=== PATIENT | female | born 1940 | race Hispanic/Latino ===

== ENCOUNTER → 2017-09-19 | Outpatient (CLI) | payer OTHER ==
[~2017-09-19] MED LIST: FOLI0.8T22 PO; GLIP1TAB6 PO; HYDR25TA PO; LOSA100T29 PO; PRENATA PO; SIMV40TA5 PO; SITA100T12 PO; VITA D3 PO; [UNRECOGNIZED DRUG - OTHER] PO
== END | disposition home or self-care (01) ==
LOC: OIH 08:45
PROVIDERS: ATTEND Family Medicine
DX: K59.00 Constipation, unspecified (principal)
CPT/HCPCS: 74018

== ENCOUNTER 2018-09-01 14:57 | Emergency (ER) | payer OTHER ==
[~2018-09-01 14:57] MED LIST changes: -LOSA100T29 PO; +LOSA100T58 PO
[2018-09-01 15:44] LABS: APPEARANCE,URINE Clear (CLEAR); BILIRUBIN,URINE Negative (NEGATIVE); COLOR,URINE Yellow (YELLOW); GLUCOSE, URINE (UA) 250 mg/dL (NEGATIVE); KETONES,URINE Negative (NEGATIVE); LEUKOCYTE ESTERASE ,URINE Negative (NEGATIVE); NITRATE,URINE Negative (NEGATIVE); OCCULT BLOOD,URINE Negative (NEGATIVE); PROTEIN,URINE Negative (NEGATIVE); UROBILINOGEN,URINE 0.2 mg/dL (0.2-1.0)
[2018-09-01 16:12] LABS: BASOPHILS % (AUTO) 0.7 % (0.0-5.0); EOSINOPHILS % (AUTO) 2.2 % (0.0-8.0); HEMATOCRIT 30.8 % (36-48); LYMPHOCYTES % (AUTO) 24.1 % (21.0-51.0); MEAN CORPUSCULAR HEMOGLOBIN 31.3 pg (27.0-33.0); MEAN CORPUSCULAR HGB CONC 34.4 g/dL (32.0-36.0); MONOCYTES % (AUTO) 10.3 % (3.0-13.0); NEUTROPHILS % (AUTO) 62.7 % (40.0-77.0); NUCLEATED RED BLOOD CELLS 0.1 % (0.0-0.19); PLATELET COUNT (AUTO) 247 K/uL (130-400); RED BLOOD CELL COUNT(AUTO) 3.38 MIL/uL (4.00-5.50); RED CELL DISTRIBUTION WIDTH 13.9 % (11.0-15.5); WHITE BLOOD COUNT (AUTO) 10.4 K/uL (4.8-10.8)
[2018-09-01 16:22] LABS: CREATININE 1.2 mg/dL (0.5-1.5); POTASSIUM 4.1 mmol/L (3.5-5.1)
[2018-09-01 16:26] LABS: ALBUMIN 3.4 g/dL (3.5-5.0); BILIRUBIN,TOTAL 0.5 mg/dL (0.2-1.0); TOTAL PROTEIN, SERUM 7.1 g/dL (6.0-8.3)
== END 2018-09-01 18:28 | disposition home or self-care (01) ==
LOC: EDH 14:57
DX: S00.03XA Contusion of scalp, initial encounter (principal); Z88.8 Allergy status to other drugs, medicaments and biological substances; W18.39XA Other fall on same level, initial encounter; Y93.89 Activity, other specified; Y92.89 Other specified places as the place of occurrence of the external cause; Y99.8 Other external cause status
CPT/HCPCS: 36415; 70450; 72125; 73030; 80053; 81003; 84484; 85025; 93005

== ENCOUNTER 2019-03-11 21:42 | Observation (INO) | payer OTHER ==
[~2019-03-11] VITALS: Ht 160 cm; Wt 63.5 kg
[~2019-03-11 21:42] MED LIST changes: +SIMV-46 PO; -SIMV40TA5 PO
[2019-03-11] MEDS ORDERED: ONDANSETRON HCL 4 MG/2 ML VIAL ONE (22:05)
[2019-03-11] MEDS ORDERED: FENTANYL CITRATE PF 50 MCG/1 ML 2ML VIAL ONE (22:05)
[2019-03-11 22:25] LABS: INR 0.97 (0.85-1.15); PARTIAL THROMBOPLASTIN TIME 25.4 SEC (26.3-35.5); PROTHROMBIN TIME 10.2 SEC (9.6-11.6)
[2019-03-11 23:49] LABS: APPEARANCE,URINE Clear (CLEAR); BILIRUBIN,URINE Negative (NEGATIVE); COLOR,URINE Yellow (YELLOW); GLUCOSE, URINE (UA) 250 mg/dL (NEGATIVE); KETONES,URINE Negative (NEGATIVE); LEUKOCYTE ESTERASE ,URINE Small (NEGATIVE); NITRATE,URINE Negative (NEGATIVE); OCCULT BLOOD,URINE Negative (NEGATIVE); PH,URINE 6.5 (5.0-8.0); PROTEIN,URINE Negative (NEGATIVE); UROBILINOGEN,URINE 0.2 mg/dL (0.2-1.0)
[2019-03-11 23:51] LABS: BASOPHILS % (AUTO) 0.5 % (0.0-5.0); EOSINOPHILS % (AUTO) 1.8 % (0.0-8.0); HEMATOCRIT 30.5 % (36-48); MEAN CORPUSCULAR HEMOGLOBIN 30.2 pg (27.0-33.0); MEAN CORPUSCULAR HGB CONC 34.1 g/dL (32.0-36.0); MEAN CORPUSCULAR VOLUME 88.7 fL (79-99); MONOCYTES % (AUTO) 8.5 % (3.0-13.0); NEUTROPHILS % (AUTO) 71.3 % (40.0-77.0); PLATELET COUNT (AUTO) 323 K/uL (130-400); RED BLOOD CELL COUNT(AUTO) 3.44 MIL/uL (4.00-5.50); RED CELL DISTRIBUTION WIDTH 13.5 % (11.0-15.5); WHITE BLOOD COUNT (AUTO) 15.4 K/uL (4.8-10.8)
[2019-03-11 23:59] LABS: CREATININE 1.2 mg/dL (0.5-1.5); POTASSIUM 4.4 mmol/L (3.5-5.1)
[2019-03-12 00:04] LABS: ALBUMIN 3.7 g/dL (3.5-5.0); BILIRUBIN,TOTAL 0.4 mg/dL (0.2-1.0); TOTAL PROTEIN, SERUM 7.8 g/dL (6.0-8.3)
[2019-03-12 00:13] LABS: BACTERIA,URINE Few /HPF (None Seen); RBC,URINE None Seen /HPF (0-1); SQUAMOUS EPITHELIAL CELL,UR Moderate /HPF (0-2)
[2019-03-12 02:00] VITALS: BP 162/75
--- NOTE | 2019-03-12 02:00 | NUR ---
admission note admit to room 431 via stretcher from er. patient awake, alert, ox3, no sob, no c/o pain at this time, left arm with sling intact, place pillow under left elbow, right hand 18 gauge catheter saline lock, patients at bedside, teach plan of care and expected outcome, both verbalize understanding via teach back
[2019-03-12] MEDS ORDERED: MORPHINE SULFATE 2 MG/ML 1ML SYG IVP PRN (03:30)
[2019-03-12] MEDS ORDERED: ONDANSETRON HCL 4 MG/2 ML VIAL IVP PRN (03:30)
[2019-03-12] MEDS ORDERED: SODIUM CHLORIDE 0.9% 10 ML VIAL IVP PRN (03:30)
[2019-03-12 04:24] VITALS: BP 155/72
[2019-03-12 05:32] LABS: BASOPHILS % (AUTO) 0.3 % (0.0-5.0); EOSINOPHILS % (AUTO) 0.8 % (0.0-8.0); HEMATOCRIT 26.5 % (36-48); LYMPHOCYTES % (AUTO) 19.3 % (21.0-51.0); MEAN CORPUSCULAR HEMOGLOBIN 29.7 pg (27.0-33.0); MEAN CORPUSCULAR HGB CONC 34.3 g/dL (32.0-36.0); MEAN CORPUSCULAR VOLUME 86.6 fL (79-99); MONOCYTES % (AUTO) 9.2 % (3.0-13.0); NEUTROPHILS % (AUTO) 69.7 % (40.0-77.0); PLATELET COUNT (AUTO) 282 K/uL (130-400); RED BLOOD CELL COUNT(AUTO) 3.06 MIL/uL (4.00-5.50); RED CELL DISTRIBUTION WIDTH 12.9 % (11.0-15.5); WHITE BLOOD COUNT (AUTO) 11.9 K/uL (4.8-10.8)
[2019-03-12 06:04] LABS: CREATININE 1.1 mg/dL (0.5-1.5); POTASSIUM 4.3 mmol/L (3.5-5.1)
[2019-03-12 08:51] VITALS: BP 167/78
--- NOTE | 2019-03-12 09:25 | NUR ---
DR. SILVERMAN SPOKE TO MD VIA TELEPHONE REGARDING CONSULT. MD REPLIED HE WOULD BE IN TO SEE PATIENT TODAY. I TOLD MD THAT PATIENT HAD BREAKFAST TODAY AND MD REPLIED OKAY, DO NOT HAVE TO MAKE HER NPO AT THIS TIME.
[2019-03-12] MEDS: PANTOPRAZOLE SODIUM 40 MG TABLET.DR PO SCH (10:41)
[2019-03-12 11:54] VITALS: BP 151/67
--- NOTE | 2019-03-12 13:40 | NUR ---
RD NOTIFICATION DIET: 75GMCCD. PO INTAKE 75% AND CLAIMS TO HAVE GOOD APPETITE. NO COMPLAINTS OF N/V/C/D AT THIS TIME. NO DIFFICULTIES CHEWING OR SWALLOWING FOOD/ LIQUIDS AT THIS TIME. FAMILY MENTIONED PT WILL NOT BE HAVING SURGERY AFTER ALL. HUMERUS LT FRACTURE NOTED. SKIN INTACT, NO EDEMA NOTED. LABS REVIEWED. MEDS REVIEWED. RD RECOMMENDS TO CONTINUE CURRENT DIET ADD ORAL SUPPLEMENTATION TO DIET ORDER Addendum: 03/12/19 at [address] Amended: Links added.
--- NOTE | 2019-03-12 15:42 | NUR ---
INITIAL MET W PATIENT AND FAMILY AT BEDSIDE. PT AAOX3 BUT VERY [place] PT LIVES WITH ADULT HANDICAPPED DAUGHTER- DAUGHTER HAS PROVIDERS TO HELP CARE FOR HER- OTHER FAMILY IN AREA- PT HAD A WALKER AND A CANE, REQUIRES [employer] ASSISTANCE STAIRS OUTSIDE HER HOUSE, WITHOUT A HANDRAIL, FELL AND BROKE WRIST, DAUGHTER STATES THE FAMILY WITH' LOOK IN AFTER THEM AND ROTATE AT NIGHT TO STAY WITH PT AND DAUGHTER Addendum: 03/12/19 at 1548 by SPRING CORLEY RN Amended: Links added.
[2019-03-12 16:00] VITALS: BP 158/74
[2019-03-12] MEDS ORDERED: SIMV40TA59 PO (16:10)
[2019-03-12] MEDS ORDERED: SITA100T12 PO (16:10)
[2019-03-12] MEDS ORDERED: SERT25TA5 PO (16:10)
[2019-03-12] MEDS ORDERED: METO-408 PO (16:10)
[2019-03-12] MEDS ORDERED: BENZ-51 PO (16:10)
[2019-03-12] MEDS ORDERED: GLUCAGON 1MG KIT 1 MG ML IM PRN (18:30)
[2019-03-12] MEDS ORDERED: DEXTROSE 50%-WATER 50 ML DISP.SYRIN IV PRN (18:30)
[2019-03-12] MEDS ORDERED: ACETAMINOPHEN-CODEINE 300/30MG TAB PO PRN (19:30)
[2019-03-12] MEDS ORDERED: TRAMADOL HCL 50 MG TABLET PO PRN (19:30)
[2019-03-12] MEDS ORDERED: TRAMADOL HCL 50 MG TABLET ONE (19:42)
[2019-03-12 19:53] VITALS: BP 152/65
[2019-03-12] MEDS ORDERED: SIMVASTATIN 20 MG TABLET PO SCH (21:00)
[2019-03-12] MEDS: METOPROLOL TARTRATE 25 MG TAB PO SCH (21:07)
[2019-03-12] MEDS: BENZONATATE 100 MG CAPSULE PO SCH (21:07)
[2019-03-12] MEDS: INSULIN HUMULIN R 100 UNIT/ML 3ML SQ SCH (21:13)
[2019-03-13] VITALS: BP 155/73
[2019-03-13 04:00] VITALS: BP 150/73
[2019-03-13] MEDS: INSULIN HUMULIN R 100 UNIT/ML 3ML SQ SCH ×3 (06:33→16:20)
[2019-03-13 08:17] VITALS: BP 131/65
[2019-03-13] MEDS: PANTOPRAZOLE SODIUM 40 MG TABLET.DR PO SCH (08:42)
[2019-03-13] MEDS: BENZONATATE 100 MG CAPSULE PO SCH ×2 (08:43→15:48)
[2019-03-13] MEDS ORDERED: LINAGLIPTIN 5 MG TABLET PO SCH (09:00)
[2019-03-13] MEDS ORDERED: SERTRALINE HCL 50 MG TABLET PO SCH (09:00)
[2019-03-13] MEDS: METOPROLOL TARTRATE 25 MG TAB PO SCH (09:36)
[2019-03-13 11:29] VITALS: BP 129/64
[2019-03-13 16:00] VITALS: BP 127/60
[2019-03-13 19:30] VITALS: BP 149/74
--- NOTE | 2019-03-13 19:30 | NUR ---
DISCHARGE DISCHARGE TEACHING PROVIDED TO PATIENT AND FAMILY AT BEDSIDE REGARDING RX (TYLENOL #3, TRAMADOL, SURFAK). INFORMED PATIENT AND FAMILY THAT FOLLOW-UP APPOINTMENT WITH DR. SILVERMAN IN 2-3 WEEKS AND FOLLOW-UP APPOINTMENT WITH PRIMARY MD DR. KAUR IN 2-3 DAYS ARE PENDING TO BE SCHEDULED. PROVIDED DR. SILVERMAN OFFICE NUMBER AND LOCATION IN DISCHARGE PAPERWORK. INFORMED PATIENT SHE WAS TO WEAR LEFT ARM SLING AT ALL TIMES AND NO WEIGHT BEARING TO LEFT ARM. ENCOURAGED TO CONTINUE PHYSICAL THERAPY TEACHING PROVIDED IN HOSPITAL AT HOME. REMOVED 18G IV FROM RIGHT HAND, CATHETER TIP INTACT. PATIENT REPORTS NO PAIN OR DISCOMFORTS, PATIENT TO BE DRIVEN HOME BY HER FAMILY. PATIENT DISCHARGED WITH LEFT ARM SLING IN PLACE.
== END 2019-03-13 19:45 | disposition home or self-care (01) ==
LOC: EDH 21:42 → EDHIP 03-12 00:35 → 4AH 03-12 01:55
PROVIDERS: ADMIT Family Medicine; ATTEND Family Medicine
DX: S42.292A Other displaced fracture of upper end of left humerus, initial encounter for closed fracture (principal); I10 Essential (primary) hypertension; E11.9 Type 2 diabetes mellitus without complications; E78.00 Pure hypercholesterolemia, unspecified; Z90.12 Acquired absence of left breast and nipple; Z85.3 Personal history of malignant neoplasm of breast; W10.8XXA Fall (on) (from) other stairs and steps, initial encounter; Y93.89 Activity, other specified; Y92.89 Other specified places as the place of occurrence of the external cause; Y99.8 Other external cause status
CPT/HCPCS: 36415 ×2; 70450; 71250; 72125; 73030; 73070; 80048; 80053; 81001; 82948 ×8; 85025 ×2; 85610; 85730; 96372 ×2; 96374; 97039 ×2; 97116 ×2; 97161; 99284; G0378 ×42; G8978; G8979; G8980; G8981; G8982; G8983; J1815 ×2; J2405; J3010

== ENCOUNTER → 2019-11-12 | Outpatient (CLI) | payer OTHER ==
[~2019-11-12] MED LIST changes: +CHOL100018 PO; -FOLI0.8T22 PO; +FOLI1TAB85 PO; +GLIP; -GLIP1TAB6 PO; -HYDR25TA PO; +LORA10TA7 PO; +METFORMIN; +MORINGA; -PRENATA PO; +SERT25TA5 PO; -SIMV-46 PO; -VITA D3 PO; +VITAMIN E; -[UNRECOGNIZED DRUG - OTHER] PO
== END | disposition home or self-care (01) ==
LOC: RAH 11:25
PROVIDERS: ATTEND Family Medicine
DX: M47.816 Spondylosis without myelopathy or radiculopathy, lumbar region (principal); M48.061 Spinal stenosis, lumbar region without neurogenic claudication; M81.0 Age-related osteoporosis without current pathological fracture; M25.551 Pain in right hip; Z96.641 Presence of right artificial hip joint
CPT/HCPCS: 72100; 73502

== ENCOUNTER → 2020-03-27 | Outpatient (CLI) | payer OTHER | END | disposition home or self-care (01) | LOC: OIH 10:46 | PROVIDERS: ATTEND Family Medicine | DX: I35.8 Other nonrheumatic aortic valve disorders (principal); R07.9 Chest pain, unspecified | CPT/HCPCS: 71046 ==

== ENCOUNTER 2022-06-25 09:39 | Emergency (ER) | payer OTHER, MEDICARE ==
[~2022-06-25] VITALS: Ht 154.9 cm; Wt 61.2 kg
[~2022-06-25 09:39] MED LIST changes: +CHOL-34 PO; -CHOL100018 PO; +SERT-438 PO; -SERT25TA5 PO
[2022-06-25] MEDS ORDERED: ASPIRIN 325MG EC TAB PO ONE (10:00)
[2022-06-25] MEDS ORDERED: 0.9%NACL 1000ML 1,000 ML IV ONE (10:00)
[2022-06-25] MEDS ORDERED: LORAZEPAM 0.5 MG TABLET PO ONE (10:00)
[2022-06-25 10:29] LABS: HEMATOCRIT 30.7 % (36-48); MEAN CORPUSCULAR HEMOGLOBIN 27.5 pg (27.0-33.0); MEAN CORPUSCULAR HGB CONC 32.6 g/dL (32.0-36.0); MEAN CORPUSCULAR VOLUME 84.3 fL (79-99); RED BLOOD CELL COUNT(AUTO) 3.64 MIL/uL (4.00-5.50); RED CELL DISTRIBUTION WIDTH 14.4 % (11.0-15.5); WHITE BLOOD COUNT (AUTO) 8.6 K/uL (4.8-10.8)
[2022-06-25 10:44] LABS: CREATININE 1.3 mg/dL (0.5-1.5)
[2022-06-25 10:48] LABS: ALBUMIN 3.7 g/dL (3.5-5.0); TOTAL PROTEIN, SERUM 7.8 g/dL (6.0-8.3)
[2022-06-25 11:09] LABS: APPEARANCE,URINE CLEAR (CLEAR); BILIRUBIN,URINE NEGATIVE (NEGATIVE); COLOR,URINE COLORLESS (YELLOW); GLUCOSE, URINE (UA) NEGATIVE (NEGATIVE); KETONES,URINE NEGATIVE (NEGATIVE); LEUKOCYTE ESTERASE ,URINE 75 Leu/uL (NEGATIVE); NITRATE,URINE NEGATIVE (NEGATIVE); OCCULT BLOOD,URINE NEGATIVE (NEGATIVE); PH,URINE 7.5 (5.0-8.0); PROTEIN,URINE NEGATIVE (NEGATIVE); UROBILINOGEN,URINE 0.2 mg/dL (0.2-1.0)
[2022-06-25 11:37] VITALS: BP 160/54
[2022-06-25 11:48] LABS: BACTERIA,URINE FEW /HPF (None Seen); RBC,URINE 0-1 /HPF (0-1); SQUAMOUS EPITHELIAL CELL,UR FEW /HPF (0-2)
[2022-06-25] MEDS ORDERED: CEPH500B PO (12:18)
== END 2022-06-25 12:45 | disposition home or self-care (01) ==
LOC: EDH 09:39
DX: R06.02 Shortness of breath (principal); R07.89 Other chest pain; N39.0 Urinary tract infection, site not specified; E11.65 Type 2 diabetes mellitus with hyperglycemia; E78.00 Pure hypercholesterolemia, unspecified; I10 Essential (primary) hypertension; Z79.84 Long term (current) use of oral hypoglycemic drugs; Z79.899 Other long term (current) drug therapy; Z90.49 Acquired absence of other specified parts of digestive tract; Z20.822 Contact with and (suspected) exposure to COVID-19
CPT/HCPCS: 99285; 84484 ×2; 80053; 85027; 87088; 87804 ×2; 82010; 81001; 36415; 87635; 71045; 96360; 96361; 93005; C9803; J7030

== ENCOUNTER 2022-07-31 09:34 | Observation (INO) | payer OTHER, MEDICARE ==
[~2022-07-31] VITALS: Ht 157.5 cm; Wt 66.5 kg
[~2022-07-31 09:34] MED LIST changes: +CEPH500B PO; -LOSA100T58 PO; +LOSA100T59 PO
[2022-07-31] MEDS ORDERED: FAMOTIDINE 20MG VIAL IV ONE (10:00)
[2022-07-31] MEDS ORDERED: 0.9%NACL 1000ML 1,000 ML IV ONE (10:00)
[2022-07-31] MEDS ORDERED: ONDANSETRON 4MG INJ IVP ONE (10:00)
[2022-07-31 10:16] LABS: BASOPHILS % (AUTO) 0.4 % (0.0-5.0); EOSINOPHILS % (AUTO) 1.5 % (0.0-8.0); HEMATOCRIT 29.7 % (36-48); LYMPHOCYTES % (AUTO) 18.1 % (21.0-51.0); MEAN CORPUSCULAR HEMOGLOBIN 27.9 pg (27.0-33.0); MONOCYTES % (AUTO) 10.1 % (3.0-13.0); NEUTROPHILS % (AUTO) 69.2 % (40.0-77.0); PLATELET COUNT (AUTO) 281 K/uL (130-400); RED BLOOD CELL COUNT(AUTO) 3.62 MIL/uL (4.00-5.50); RED CELL DISTRIBUTION WIDTH 13.3 % (11.0-15.5); WHITE BLOOD COUNT (AUTO) 12.2 K/uL (4.8-10.8)
[2022-07-31 10:27] LABS: ALBUMIN 3.6 g/dL (3.5-5.0); CREATININE 1.2 mg/dL (0.5-1.5); POTASSIUM 3.7 mmol/L (3.5-5.1)
[2022-07-31 10:31] LABS: TOTAL PROTEIN, SERUM 7.8 g/dL (6.0-8.3)
[2022-07-31 11:08] LABS: APPEARANCE,URINE CLEAR (CLEAR); BILIRUBIN,URINE NEGATIVE (NEGATIVE); COLOR,URINE LIGHT-YELLOW (YELLOW); GLUCOSE, URINE (UA) 300 mg/dL (NEGATIVE); KETONES,URINE NEGATIVE (NEGATIVE); LEUKOCYTE ESTERASE ,URINE NEGATIVE Leu/uL (NEGATIVE); NITRATE,URINE NEGATIVE (NEGATIVE); OCCULT BLOOD,URINE NEGATIVE (NEGATIVE); PH,URINE 7.5 (5.0-8.0); PROTEIN,URINE 10 mg/dL (NEGATIVE); UROBILINOGEN,URINE 0.2 mg/dL (0.2-1.0)
[2022-07-31 11:16] LABS: RBC,URINE 0-1 /HPF (0-1); SQUAMOUS EPITHELIAL CELL,UR MOD /HPF (0-2); TRANSITIONAL EPI CELLS,URINE RARE /HPF (None Seen); WBC,URINE 0-1 /HPF (0-1)
[2022-07-31] MEDS ORDERED: IOHEXOL 350 MG/ML 100ML INFUS..BTL IV ONE (11:58)
[2022-07-31] MEDS ORDERED: POTASSIUM CHLORIDE 20MEQ/100ML 100 ML IV PRN ×2 (13:30)
[2022-07-31] MEDS ORDERED: KCL 20 MEQ ERTAB PO PRN (13:30)
[2022-07-31] MEDS ORDERED: HYDROMORPHONE 1 MG INJ IV PRN (13:30)
[2022-07-31] MEDS ORDERED: POTASSIUM CHLORIDE 10% ELIXIR 20 MEQ/15 ML UDCUP PO PRN (13:30)
[2022-07-31] MEDS ORDERED: HYDROCODONE/ACETAMINOPHEN 5/325 MG TAB PO PRN ×2 (13:30)
[2022-07-31] MEDS ORDERED: DEXTROSE 50%-WATER 50 ML DISP.SYRIN IV PRN (13:30)
[2022-07-31] MEDS ORDERED: ACETAMINOPHEN 325 MG TAB PO PRN (13:30)
[2022-07-31] MEDS ORDERED: GLUCAGON 1MG KIT 1 MG ML IM PRN (13:30)
[2022-07-31] MEDS ORDERED: HYDRALAZINE 20MG/ML VIAL IV PRN (13:30)
[2022-07-31] MEDS ORDERED: ALBUTEROL 0.083% 2.5 MG/3 ML INH IH PRN (13:30)
[2022-07-31] MEDS ORDERED: DIPHENHYDRAMINE HCL 25 MG CAPSULE PO PRN (13:30)
[2022-07-31] MEDS: 0.9%NACL 1000ML 1,000 ML IV SCH (13:54)
[2022-07-31] MEDS ORDERED: TIZA2CAP9 PO (14:19)
[2022-07-31] MEDS ORDERED: PANT40TA54 PO (14:19)
[2022-07-31] MEDS ORDERED: SIMV40TA59 PO (14:19)
[2022-07-31] MEDS ORDERED: AMLO-257 PO (14:19)
[2022-07-31] MEDS ORDERED: DOCU100C33 PO (14:19)
[2022-07-31] MEDS ORDERED: LEVO25CA4 PO (14:19)
[2022-07-31] MEDS ORDERED: AMOX1TAB16 PO (14:19)
[2022-07-31] MEDS ORDERED: SIME125T3 PO (14:19)
[2022-07-31] MEDS ORDERED: MEMA5TAB42 PO (14:19)
[2022-07-31] MEDS: INSULIN HUMULIN R 100 UNIT/ML 3ML SQ SCH ×2 (16:30→21:00)
[2022-07-31] MEDS ORDERED: CEFTRIAXONE 2GM VIAL IVPB SCH (17:00)
[2022-07-31 19:41] LABS: CREATININE 1.1 mg/dL (0.5-1.5)
[2022-07-31] MEDS ORDERED: FAMOTIDINE 20MG VIAL IV SCH (21:00)
[2022-07-31] MEDS ORDERED: AMLODIPINE 5 MG TAB PO SCH (21:00)
[2022-07-31] MEDS ORDERED: SIMVASTATIN 20 MG TABLET PO SCH (21:00)
[2022-07-31] MEDS ORDERED: HALOPERIDOL INJ 5 MG/ML VIAL ONE (22:42)
[2022-07-31] MEDS: MEMANTINE HCL 5 MG TABLET PO SCH (22:46)
[2022-07-31] MEDS: METOCLOPRAMIDE 10 MG/2 ML VIAL IVP SCH (22:47)
[2022-07-31] MEDS ORDERED: HALOPERIDOL INJ 5 MG/ML VIAL IM SCH (23:00)
[2022-08-01] MEDS: 0.9%NACL 1000ML 1,000 ML IV SCH ×2 (00:39→09:30)
[2022-08-01] MEDS ORDERED: HALOPERIDOL INJ 5 MG/ML VIAL IM SCH ×2 (01:00)
[2022-08-01 01:33] VITALS: BP 155/74
[2022-08-01 03:03] VITALS: BP 158/89
[2022-08-01 05:34] LABS: BASOPHILS % (AUTO) 0.5 % (0.0-5.0); EOSINOPHILS % (AUTO) 0.5 % (0.0-8.0); HEMATOCRIT 26.9 % (36-48); LYMPHOCYTES % (AUTO) 15.3 % (21.0-51.0); MEAN CORPUSCULAR HEMOGLOBIN 27.8 pg (27.0-33.0); MEAN CORPUSCULAR HGB CONC 32.7 g/dL (32.0-36.0); MEAN CORPUSCULAR VOLUME 85.1 fL (79-99); NEUTROPHILS % (AUTO) 75.1 % (40.0-77.0); PLATELET COUNT (AUTO) 192 K/uL (130-400); RED BLOOD CELL COUNT(AUTO) 3.16 MIL/uL (4.00-5.50); RED CELL DISTRIBUTION WIDTH 13.9 % (11.0-15.5); WHITE BLOOD COUNT (AUTO) 12.9 K/uL (4.8-10.8)
[2022-08-01 05:50] LABS: B-TYPE NATRIURETIC PEPTIDE 50 pg/mL (0-100)
[2022-08-01 05:59] LABS: CREATININE 1.1 mg/dL (0.5-1.5); MAGNESIUM 1.8 mg/dL (1.80-2.40); POTASSIUM 3.8 mmol/L (3.5-5.1); THYROID STIMULATING HORMONE 2.98 uIU/mL (0.36-3.74)
[2022-08-01] MEDS ORDERED: LEVOTHYROXINE 25 MCG TABLET PO SCH (06:30)
[2022-08-01] MEDS: INSULIN HUMULIN R 100 UNIT/ML 3ML SQ SCH (06:48)
[2022-08-01 08:00] VITALS: BP 116/68
[2022-08-01] MEDS ORDERED: DOCUSATE SODIUM 100 MG CAP PO SCH (09:00)
[2022-08-01] MEDS ORDERED: ENOXAPARIN SODIUM 30 MG/0.3 ML SQ SCH (09:00)
[2022-08-01] MEDS: METOCLOPRAMIDE 10 MG/2 ML VIAL IVP SCH (09:00)
[2022-08-01] MEDS: MEMANTINE HCL 5 MG TABLET PO SCH (09:00)
== END 2022-08-01 09:45 | disposition home or self-care (01) ==
LOC: EDH 09:34 → EDHIP 13:15 → 3CH 22:05 → EDHIP 22:17 → 3DH 08-01 00:46
PROVIDERS: ADMIT Internal Medicine Critical Care Medicine; ATTEND Internal Medicine Critical Care Medicine
DX: K59.00 Constipation, unspecified (principal); Z20.822 Contact with and (suspected) exposure to COVID-19; E86.0 Dehydration; E87.1 Hypo-osmolality and hyponatremia; E87.8 Other disorders of electrolyte and fluid balance, not elsewhere classified; D72.829 Elevated white blood cell count, unspecified; M43.9 Deforming dorsopathy, unspecified; I10 Essential (primary) hypertension; E11.65 Type 2 diabetes mellitus with hyperglycemia; E78.5 Hyperlipidemia, unspecified; F03.90 Unspecified dementia, unspecified severity, without behavioral disturbance, psychotic disturbance, mood disturbance, and anxiety; E03.9 Hypothyroidism, unspecified; E78.00 Pure hypercholesterolemia, unspecified; Z85.3 Personal history of malignant neoplasm of breast; Z90.12 Acquired absence of left breast and nipple; Z79.899 Other long term (current) drug therapy
CPT/HCPCS: 96376; 96372; 96361 ×2; 96365; 96375; 99285; 84484; 80053; 83690; 85025 ×2; 87880; 87804 ×2; 82948 ×2; 83605; 83935; 81001; 36415 ×2; 87635; 71045; 74177; 92610; 93005; 84443; 83735; 80048; 83880; 83930; 82533; G0378 ×21; C9803; J3490 ×2; J1170; J7030; J0696; J1630; J2405; Q9967; J1815

== ENCOUNTER 2023-01-31 11:48 | Observation (INO) | payer OTHER, MEDICARE ==
[~2023-01-31] VITALS: Ht 162.6 cm; Wt 68.9 kg
[~2023-01-31 11:48] MED LIST changes: +AMLO-257 PO; +AMOX1TAB16 PO; +DOCU100C33 PO; +LEVO25CA4 PO; +MEMA5TAB42 PO; +PANT40TA54 PO; +SIME125T3 PO; +SIMV40TA59 PO; +TIZA2CAP9 PO
[2023-01-31 13:19] LABS: BASOPHILS # (AUTO) 0.06 K/uL (0.00-0.20); BASOPHILS % (AUTO) 0.3 % (0.0-5.0); EOSINOPHILS # (AUTO) 0.17 K/uL (0.00-0.70); HEMATOCRIT 32.3 % (36-48); IMMATURE GRANULOCYTE ABSOLUTE 0.26 K/uL (0-1); LYMPHOCYTES % (AUTO) 11.6 % (21.0-51.0); MEAN CORPUSCULAR HEMOGLOBIN 28.6 pg (27.0-33.0); MEAN CORPUSCULAR HGB CONC 34.1 g/dL (32.0-36.0); MEAN CORPUSCULAR VOLUME 83.9 fL (79-99); MONOCYTES # (AUTO) 0.7 K/uL (0.1-1.0); MONOCYTES % (AUTO) 4.2 % (3.0-13.0); NEUTROPHILS % (AUTO) 81.4 % (40.0-77.0); PLATELET COUNT (AUTO) 320 K/uL (130-400); RED BLOOD CELL COUNT(AUTO) 3.85 MIL/uL (4.00-5.50); RED CELL DISTRIBUTION WIDTH 14.1 % (11.0-15.5); WHITE BLOOD COUNT (AUTO) 17.3 K/uL (4.8-10.8)
[2023-01-31 13:27] LABS: CREATININE 1.2 mg/dL (0.5-1.5); POTASSIUM 4.1 mmol/L (3.5-5.1)
[2023-01-31 13:34] LABS: ALBUMIN 3.8 g/dL (3.5-5.0); BILIRUBIN,TOTAL 0.6 mg/dL (0.2-1.0); TOTAL PROTEIN, SERUM 8.6 g/dL (6.0-8.3)
[2023-01-31] MEDS ORDERED: GUAIFENESIN-DM 200/20 MG 10 ML PO PRN (15:30)
[2023-01-31] MEDS ORDERED: MAG/ALUM/SIMETH 30 ML UDCUP PO PRN (15:30)
[2023-01-31] MEDS ORDERED: GLUCAGON 1MG KIT 1 MG ML IM PRN ×2 (15:30→20:30)
[2023-01-31] MEDS ORDERED: MAGNESIUM 2GM PREMIX 50ML 50 ML IV PRN (15:30)
[2023-01-31] MEDS ORDERED: LACTATED RINGERS 1000ML 1,000 ML IV ONE ×2 (15:30→16:30)
[2023-01-31] MEDS ORDERED: ACETAMINOPHEN 325 MG TAB PO PRN (15:30)
[2023-01-31] MEDS ORDERED: DiphenhydrAMINE HCL 50 MG/ML VIAL IV PRN (15:30)
[2023-01-31] MEDS ORDERED: ONDANSETRON 4MG INJ IV PRN (15:30)
[2023-01-31] MEDS ORDERED: DEXTROSE 50%-WATER 50 ML DISP.SYRIN IV PRN (15:30)
[2023-01-31] MEDS ORDERED: LACTULOSE 20 GM/30 ML UDCUP PO PRN (15:30)
[2023-01-31] MEDS ORDERED: POTASSIUM CHLORIDE 10% ELIXIR 20 MEQ/15 ML UDCUP PO PRN (15:30)
[2023-01-31] MEDS ORDERED: KCL 20 MEQ ERTAB PO PRN (15:30)
[2023-01-31] MEDS ORDERED: DOCUSATE SODIUM 100 MG CAP PO PRN (15:30)
[2023-01-31] MEDS ORDERED: DIPHENHYDRAMINE HCL 25 MG CAPSULE PO PRN (15:30)
[2023-01-31] MEDS ORDERED: NITROGLYCERIN 0.4 MG SL TAB SL PRN (15:30)
[2023-01-31] MEDS ORDERED: POTASSIUM CHLORIDE 20MEQ/100ML 100 ML IV PRN ×2 (15:30)
[2023-01-31] MEDS: INSULIN HUMULIN R 100 UNIT/ML 3ML SQ SCH ×3 (16:30→21:26)
[2023-01-31] MEDS ORDERED: ZOSYN 3.375GM +NS 50ML IV ONE (16:30)
[2023-01-31] MEDS ORDERED: SIMV-46 PO (17:06)
[2023-01-31] MEDS ORDERED: FOLI0.8T22 PO (17:06)
[2023-01-31] MEDS: 0.9%NACL 1000ML 1,000 ML IV SCH (17:10)
[2023-01-31] MEDS: ACETAMINOPHEN 325 MG TAB PO PRN ×2 (17:34→21:19)
[2023-01-31 18:14] LABS: ADD UA MICROSCOPIC YES; BILIRUBIN,URINE NEGATIVE (NEGATIVE); COLOR,URINE LIGHT-YELLOW (YELLOW); GLUCOSE, URINE (UA) NEGATIVE (NEGATIVE); KETONES,URINE 5 mg/dL (NEGATIVE); LEUKOCYTE ESTERASE ,URINE SMALL Leu/uL (NEGATIVE); NITRATE,URINE NEGATIVE (NEGATIVE); OCCULT BLOOD,URINE TRACE-LYSED (NEGATIVE); PH,URINE 7.5 (5.0-8.0); PROTEIN,URINE NEGATIVE (NEGATIVE); UROBILINOGEN,URINE 0.2 mg/dL (0.2-1.0)
[2023-01-31 18:15] LABS: APPEARANCE,URINE HAZY (CLEAR)
[2023-01-31 18:18] LABS: WBC,URINE 26-50 /HPF (0-1)
[2023-01-31 18:19] LABS: BACTERIA,URINE Rare /HPF (None Seen)
[2023-01-31] MEDS ORDERED: CEFTRIAXONE 1G VIAL 2 GM in 0.9%NACL 100ML 100 ML IV SCH (20:30)
[2023-01-31] MEDS ORDERED: CEFTRIAXONE 1G VIAL 2 GM in 0.9%NACL 100ML 100 ML IVPB SCH (20:30)
[2023-01-31] MEDS ORDERED: 0.9%NACL 1000ML 1,000 ML IV SCH (20:30)
[2023-01-31] MEDS: FAMOTIDINE 20MG TAB PO SCH ×2 (21:00→21:18)
[2023-01-31] MEDS: CEFTRIAXONE 2GM VIAL IVPB SCH (21:18)
[2023-01-31] MEDS: ALPRAZOLAM 0.5 MG TABLET PO PRN (21:19)
[2023-01-31] MEDS: ZOLPIDEM TARTRATE 5 MG TAB PO PRN (21:19)
[2023-02-01] VITALS (7 sets, daily range): BP systolic 92–154; BP diastolic 53–88; PULSE 86–103; RESP 17–18; O2SAT 93–97
[2023-02-01] MEDS: 0.9%NACL 1000ML 1,000 ML IV SCH ×2 (04:50→15:06)
[2023-02-01] MEDS: INSULIN HUMULIN R 100 UNIT/ML 3ML SQ SCH ×5 (06:26→20:52)
[2023-02-01 06:42] LABS: BASOPHILS # (AUTO) 0.08 K/uL (0.00-0.20); BASOPHILS % (AUTO) 0.6 % (0.0-5.0); EOSINOPHILS # (AUTO) 0.17 K/uL (0.00-0.70); EOSINOPHILS % (AUTO) 1.2 % (0.0-8.0); HEMATOCRIT 31.8 % (36-48); IMMATURE GRANULOCYTE ABSOLUTE 0.14 K/uL (0-1); LYMPHOCYTES # (AUTO) 0.9 K/uL (1.0-4.8); LYMPHOCYTES % (AUTO) 6.3 % (21.0-51.0); MEAN CORPUSCULAR HGB CONC 33.6 g/dL (32.0-36.0); MEAN CORPUSCULAR VOLUME 83.2 fL (79-99); MONOCYTES # (AUTO) 0.6 K/uL (0.1-1.0); MONOCYTES % (AUTO) 4.1 % (3.0-13.0); NEUTROPHILS # (AUTO) 12.6 K/uL (1.8-7.7); NEUTROPHILS % (AUTO) 86.8 % (40.0-77.0); PLATELET COUNT (AUTO) 310 K/uL (130-400); RED BLOOD CELL COUNT(AUTO) 3.82 MIL/uL (4.00-5.50); RED CELL DISTRIBUTION WIDTH 14.1 % (11.0-15.5); WHITE BLOOD COUNT (AUTO) 14.5 K/uL (4.8-10.8)
[2023-02-01 06:58] LABS: HEMOGLOBIN A1C 8.5 % (4.0-6.0)
[2023-02-01] MEDS: POLYETHYLENE GLYCOL 3350 17 GM POWD.PACK PO SCH (09:00)
[2023-02-01] MEDS: ENOXAPARIN SODIUM 30 MG/0.3 ML SQ SCH (09:50)
[2023-02-01] MEDS: ALPRAZOLAM 0.5 MG TABLET PO PRN (15:06)
[2023-02-01] MEDS: ACETAMINOPHEN 325 MG TAB PO PRN (15:07)
[2023-02-01] MEDS: ZOLPIDEM TARTRATE 5 MG TAB PO PRN (20:38)
[2023-02-01] MEDS: CEFTRIAXONE 2GM VIAL IVPB SCH (20:38)
[2023-02-01] MEDS: FAMOTIDINE 20MG TAB PO SCH ×2 (20:38→20:51)
[2023-02-02 04:00] VITALS: BP 149/79; PULSE 100; RESP 20
[2023-02-02 05:32] LABS: BASOPHILS # (AUTO) 0.08 K/uL (0.00-0.20); BASOPHILS % (AUTO) 0.6 % (0.0-5.0); EOSINOPHILS # (AUTO) 0.16 K/uL (0.00-0.70); EOSINOPHILS % (AUTO) 1.1 % (0.0-8.0); HEMATOCRIT 29.6 % (36-48); IMMATURE GRANULOCYTE ABSOLUTE 0.13 K/uL (0-1); LYMPHOCYTES # (AUTO) 1.2 K/uL (1.0-4.8); LYMPHOCYTES % (AUTO) 8.5 % (21.0-51.0); MEAN CORPUSCULAR HEMOGLOBIN 27.5 pg (27.0-33.0); MEAN CORPUSCULAR HGB CONC 33.4 g/dL (32.0-36.0); MEAN CORPUSCULAR VOLUME 82.2 fL (79-99); MONOCYTES # (AUTO) 0.8 K/uL (0.1-1.0); MONOCYTES % (AUTO) 5.5 % (3.0-13.0); NEUTROPHILS # (AUTO) 11.8 K/uL (1.8-7.7); NEUTROPHILS % (AUTO) 83.4 % (40.0-77.0); PLATELET COUNT (AUTO) 291 K/uL (130-400); RED CELL DISTRIBUTION WIDTH 14.5 % (11.0-15.5); WHITE BLOOD COUNT (AUTO) 14.2 K/uL (4.8-10.8)
[2023-02-02] MEDS: INSULIN HUMULIN R 100 UNIT/ML 3ML SQ SCH ×2 (05:38→11:53)
[2023-02-02 05:55] LABS: ALBUMIN 2.7 g/dL (3.5-5.0); BILIRUBIN,TOTAL 0.5 mg/dL (0.2-1.0); CREATININE 0.9 mg/dL (0.5-1.5); MAGNESIUM 2.2 mg/dL (1.80-2.40); POTASSIUM 3.4 mmol/L (3.5-5.1)
[2023-02-02 07:30] VITALS: O2SAT 97
[2023-02-02 08:00] VITALS: BP 163/86; PULSE 102; RESP 18
[2023-02-02] MEDS: POLYETHYLENE GLYCOL 3350 17 GM POWD.PACK PO SCH (09:00)
[2023-02-02] MEDS: ENOXAPARIN SODIUM 30 MG/0.3 ML SQ SCH (09:47)
[2023-02-02 11:55] VITALS: BP 164/81; PULSE 101; RESP 18
[2023-02-02] MEDS ORDERED: FAMO20TA8 PO (15:05)
[2023-02-02] MEDS ORDERED: AMOX1TAB16 PO (15:05)
== END 2023-02-02 16:50 | disposition home or self-care (01) ==
LOC: EDH 11:48 → EDHIP 15:22 → INTOOBSV 15:22 → 4BH 02-01 04:00
PROVIDERS: ADMIT Internal Medicine Pulmonary Disease; ATTEND Internal Medicine Pulmonary Disease
DX: A41.9 Sepsis, unspecified organism (principal); N30.00 Acute cystitis without hematuria; F03.90 Unspecified dementia, unspecified severity, without behavioral disturbance, psychotic disturbance, mood disturbance, and anxiety; G93.41 Metabolic encephalopathy; E87.1 Hypo-osmolality and hyponatremia; E11.65 Type 2 diabetes mellitus with hyperglycemia; M25.551 Pain in right hip; M54.50 Low back pain, unspecified; M79.601 Pain in right arm; E78.00 Pure hypercholesterolemia, unspecified; I10 Essential (primary) hypertension; E03.9 Hypothyroidism, unspecified; Z79.84 Long term (current) use of oral hypoglycemic drugs; Z90.89 Acquired absence of other organs; Z85.3 Personal history of malignant neoplasm of breast; W01.0XXA Fall on same level from slipping, tripping and stumbling without subsequent striking against object, initial encounter; Y93.89 Activity, other specified; Y92.89 Other specified places as the place of occurrence of the external cause; Y99.8 Other external cause status
CPT/HCPCS: 99285; 70450; 96365; 96361 ×3; 71045; 96366 ×3; 96375; 80053 ×2; 83880; 85025 ×3; 87077; 87088; 87186; 82948 ×8; 81001; 36415 ×3; 73502; 73030; 72125; 97161; 96367; 97530 ×4; 96376; 96372 ×2; 83036; 83735 ×2; J1815; J7030; J0696 ×2; J2543; J3475; G0378; J1650